=== PATIENT | male | born 1960 | race Caucasian/White ===

== ENCOUNTER 2020-07-05 14:30 | Inpatient (IN) | payer MEDICAID ==
[~2020-07-05] VITALS: Ht 162.6 cm; Wt 83.9 kg
[2020-07-05 20:17] LABS: BASOPHILS % (AUTO) 0.9 % (0.0-2.0); EOSINOPHILS % (AUTO) 0.5 % (1.0-6.0); HEMATOCRIT 32.6 % (41-53); HEMOGLOBIN 10.6 g/dL (13.5-17.5); LYMPHOCYTES % (AUTO) 16.6 % (22.0-44.0); MEAN CORPUSCULAR HGB CONC 32.4 G/dL (31.0-37.0); MEAN CORPUSCULAR VOLUME 77 fL (80-100); MONOCYTES # (AUTO) 0.7 K/uL (0.1-1.0); MONOCYTES % (AUTO) 12.5 % (2.0-9.0); NEUTROPHILS # (AUTO) 4.1 K/uL (1.8-7.7); NEUTROPHILS % (AUTO) 69.5 % (40.0-70.0); PLATELET COUNT (AUTO) 317 K/uL (150-450); RED BLOOD CELL COUNT(AUTO) 4.21 MIL/uL (4.50-5.90); RED CELL DISTRIBUTION WIDTH 21.7 % (11.5-14.5)
[2020-07-05 20:29] LABS: COVID AG,FIA SOURCE NASOPHARYNGEAL
[2020-07-05 20:29] LABS: ANION GAP 14 mmol/L (8-16); CARBON DIOXIDE 24 mmol/L (22-29); CHLORIDE 100 mmol/L (98-107); CREATININE 0.76 mg/dL (0.60-1.30); GLUCOSE,RANDOM 91 mg/dL (70-110); POTASSIUM 3.6 mmol/L (3.5-5.1); SODIUM SERUM 138 mmol/L (136-145); UREA NITROGEN, BLOOD 8 mg/dL (7-18)
[2020-07-05 20:30] LABS: CALCIUM, TOTAL 8.7 mg/dL (8.8-10.5); GLOMERULAR FILTR. RATE CALC > 60 mL/min (>60)
[2020-07-05 20:35] LABS: ALANINE AMINOTRANSFERASE 29 U/L (12-78); ALBUMIN 3.8 g/dL (3.4-5.0); ALKALINE PHOSPHATASE 66 U/L (46-116); ASPARTATE AMINOTRANSFERASE 35 U/L (15-37); BILIRUBIN,TOTAL 0.2 mg/dL (0.1-1.0)
[2020-07-05 20:45] LABS: APPEARANCE,URINE CLEAR (CLEAR); BILIRUBIN,URINE NEGATIVE (NEGATIVE); GLUCOSE, URINE (UA) NEGATIVE (NEGATIVE); KETONES,URINE NEGATIVE (NEGATIVE); LEUKOCYTE ESTERASE ,URINE NEGATIVE (NEGATIVE); NITRATE,URINE NEGATIVE (NEGATIVE); OCCULT BLOOD,URINE SMALL (NEGATIVE); PROTEIN,URINE POS 1+ (NEGATIVE)
[2020-07-05 20:52] LABS: AMPHET/METH SCREEN,URINE NEGATIVE (NEGATIVE); BARBITURATE SCREEN, URINE NEGATIVE (NEGATIVE); BENZODIAZEPINES SCREEN,URINE NEGATIVE (NEGATIVE); CANNABINOID SCREEN,URINE POSITIVE (NEGATIVE); COCAINE SCREEN,URINE NEGATIVE (NEGATIVE); METHADONE SCREEN, URINE NEGATIVE (NEGATIVE); OPIATE SCREEN,URINE NEGATIVE (NEGATIVE)
[2020-07-05 20:57] LABS: WBC,URINE 0-2 /HPF (0-5)
[2020-07-05 20:58] LABS: BACTERIA,URINE Many /HPF (None Seen)
[2020-07-05 21:01] LABS: SQUAMOUS EPITHELIAL CELL,UR Few /LPF (None Seen)
[2020-07-05 21:04] LABS: PHENCYCLIDINE SCREEN,URINE NEGATIVE (NEGATIVE)
[2020-07-05] MEDS ORDERED: LORazepam 1 MG TABLET PO ONE (21:15)
[2020-07-05] MEDS ORDERED: HALOPERIDOL 5 MG TABLET PO PRN (22:45)
[2020-07-05] MEDS ORDERED: LORazepam 2 MG TABLET PO PRN (22:45)
[2020-07-05] MEDS ORDERED: ZOLPIDEM TARTRATE 10 MG TABLET PO PRN (22:45)
[2020-07-06] VITALS (13 sets, daily range): BP systolic 113–163; BP diastolic 67–98
[2020-07-06 06:53] LABS: CHOL/HDL RATIO 2.2 (4.2-7.3)
[2020-07-06] MEDS ORDERED: ONDANSETRON HCL 4 MG TABLET PO PRN (07:15)
[2020-07-06] MEDS ORDERED: LOPERAMIDE HCL 2 MG CAPSULE PO PRN (07:15)
[2020-07-06] MEDS ORDERED: GuaiFENesin/D-METHORPHAN [SUGAR-FREE] 200-20MG/10 ML SYRUP UDCUP PO PRN (07:15)
[2020-07-06] MEDS ORDERED: DOCUSATE SODIUM 100 MG CAPSULE PO PRN (07:15)
[2020-07-06] MEDS ORDERED: PETROLATUM,WHITE 28 GM JELLY TP PRN (07:15)
[2020-07-06] MEDS ORDERED: ACETAMINOPHEN 325 MG TABLET PO PRN (07:15)
[2020-07-06] MEDS ORDERED: ALBUTEROL SULFATE HFA 90 MCG/PUFF 8 GM INHALER IH PRN (07:15)
[2020-07-06] MEDS ORDERED: MAGNESIUM HYDROXIDE SUSPENSION 30 ML UDCUP PO PRN (07:15)
[2020-07-06] MEDS ORDERED: IBUPROFEN 400 MG TABLET PO PRN (07:15)
[2020-07-06] MEDS ORDERED: NICOTINE 14 MG/24 HOUR PATCH TD PRN (07:15)
[2020-07-06] MEDS ORDERED: MAG HYDROX/AL HYDROX/SIMETH ES 30 ML SUSPENSION UDCUP PO PRN (07:15)
[2020-07-06] MEDS ORDERED: CloNIDine HCL 0.1 MG TABLET PO PRN (07:15)
[2020-07-06] MEDS ORDERED: CYANOCOBALAMIN 1,000 MCG/ML VIAL IM ONE (14:15)
[2020-07-06] MEDS: FOLIC ACID 1 MG TABLET PO SCH (14:57)
[2020-07-06] MEDS: MULTIVITAMINS WITH MINERALS, THERAPEUTIC TABLET PO SCH (14:57)
[2020-07-06] MEDS: SERTRALINE HCL 50 MG TABLET PO SCH (14:57)
[2020-07-06] MEDS: THIAMINE 100 MG TABLET PO SCH (16:39)
[2020-07-06] MEDS: DIAZEPAM 10 MG TABLET PO PRN (19:44)
[2020-07-06] MEDS: DIVALPROEX SODIUM 500 MG ER TABLET PO SCH (21:05)
[2020-07-07 02:00] VITALS: BP 137/94
[2020-07-07] MEDS: DIAZEPAM 10 MG TABLET PO PRN (03:52)
[2020-07-07 06:00] VITALS: BP 131/91
[2020-07-07] MEDS ORDERED: DIAZEPAM 10 MG TABLET PO PRN (07:00)
[2020-07-07] MEDS: DIAZEPAM 10 MG TABLET PO SCH ×4 (08:01→20:07)
[2020-07-07] MEDS: SERTRALINE HCL 50 MG TABLET PO SCH (08:01)
[2020-07-07] MEDS: FOLIC ACID 1 MG TABLET PO SCH (08:01)
[2020-07-07] MEDS: THIAMINE 100 MG TABLET PO SCH ×2 (08:01→16:02)
[2020-07-07] MEDS: MULTIVITAMINS WITH MINERALS, THERAPEUTIC TABLET PO SCH (08:01)
[2020-07-07 08:25] VITALS: BP 149/107
[2020-07-07 10:00] VITALS: BP 135/87
[2020-07-07 16:00] VITALS: BP 84/57
[2020-07-07 18:26] VITALS: BP 148/82
[2020-07-07] MEDS: DIVALPROEX SODIUM 500 MG ER TABLET PO SCH (20:08)
[2020-07-08 02:08] VITALS: BP 132/87
[2020-07-08 08:24] VITALS: BP 135/91
[2020-07-08 08:25] VITALS: BP 135/91
[2020-07-08] MEDS: DIAZEPAM 10 MG TABLET PO SCH ×4 (09:12→20:46)
[2020-07-08] MEDS: THIAMINE 100 MG TABLET PO SCH ×2 (09:12→16:31)
[2020-07-08] MEDS: SERTRALINE HCL 50 MG TABLET PO SCH (09:12)
[2020-07-08] MEDS: FOLIC ACID 1 MG TABLET PO SCH (09:12)
[2020-07-08] MEDS: MULTIVITAMINS WITH MINERALS, THERAPEUTIC TABLET PO SCH (09:12)
[2020-07-08 18:12] VITALS: BP 132/80
[2020-07-08 18:19] VITALS: BP 139/83
[2020-07-08] MEDS: DIVALPROEX SODIUM 500 MG ER TABLET PO SCH (20:46)
[2020-07-09] MEDS ORDERED: DIAZEPAM 5 MG TABLET PO PRN (07:00)
[2020-07-09] MEDS: MULTIVITAMINS WITH MINERALS, THERAPEUTIC TABLET PO SCH (08:08)
[2020-07-09] MEDS: DIAZEPAM 5 MG TABLET PO SCH ×4 (08:10→20:38)
[2020-07-09] MEDS: FOLIC ACID 1 MG TABLET PO SCH (08:10)
[2020-07-09] MEDS: THIAMINE 100 MG TABLET PO SCH ×2 (08:10→16:27)
[2020-07-09] MEDS: SERTRALINE HCL 50 MG TABLET PO SCH (08:10)
[2020-07-09 08:15] VITALS: BP 127/96
[2020-07-09 16:00] VITALS: BP 145/82
[2020-07-09] MEDS: DIVALPROEX SODIUM 500 MG ER TABLET PO SCH (20:38)
[2020-07-10] MEDS ORDERED: DIAZEPAM 5 MG TABLET PO PRN (07:00)
[2020-07-10] MEDS: FOLIC ACID 1 MG TABLET PO SCH (08:01)
[2020-07-10] MEDS: SERTRALINE HCL 50 MG TABLET PO SCH (08:01)
[2020-07-10] MEDS: MULTIVITAMINS WITH MINERALS, THERAPEUTIC TABLET PO SCH (08:01)
[2020-07-10] MEDS: THIAMINE 100 MG TABLET PO SCH ×2 (08:01→16:30)
[2020-07-10 08:50] VITALS: BP 146/89
[2020-07-10 08:53] VITALS: BP 146/89
[2020-07-10 16:00] VITALS: BP 140/76
[2020-07-10 19:28] VITALS: BP 140/76
[2020-07-10] MEDS: DIVALPROEX SODIUM 500 MG ER TABLET PO SCH (20:19)
[2020-07-11] MEDS: MULTIVITAMINS WITH MINERALS, THERAPEUTIC TABLET PO SCH (08:07)
[2020-07-11] MEDS: SERTRALINE HCL 50 MG TABLET PO SCH (08:07)
[2020-07-11] MEDS: FOLIC ACID 1 MG TABLET PO SCH (08:07)
[2020-07-11] MEDS: THIAMINE 100 MG TABLET PO SCH ×2 (08:07→16:09)
[2020-07-11 12:10] VITALS: BP 126/67
[2020-07-11 16:30] VITALS: BP 139/86
[2020-07-11 17:24] LABS: COVID AG,FIA SOURCE NASOPHARYNGEAL
[2020-07-11] MEDS: DIVALPROEX SODIUM 500 MG ER TABLET PO SCH (20:37)
[2020-07-12] MEDS: THIAMINE 100 MG TABLET PO SCH ×2 (08:27→17:05)
[2020-07-12] MEDS: SERTRALINE HCL 50 MG TABLET PO SCH (08:27)
[2020-07-12] MEDS: MULTIVITAMINS WITH MINERALS, THERAPEUTIC TABLET PO SCH (08:27)
[2020-07-12] MEDS: FOLIC ACID 1 MG TABLET PO SCH (08:27)
[2020-07-12 08:53] VITALS: BP 135/81
[2020-07-12 16:00] VITALS: BP 116/77
[2020-07-12 16:21] VITALS: BP 116/77
[2020-07-12] MEDS: DIVALPROEX SODIUM 500 MG ER TABLET PO SCH (20:10)
[2020-07-13] MEDS: FOLIC ACID 1 MG TABLET PO SCH (08:39)
[2020-07-13] MEDS: THIAMINE 100 MG TABLET PO SCH ×2 (08:39→16:16)
[2020-07-13] MEDS: SERTRALINE HCL 50 MG TABLET PO SCH (08:39)
[2020-07-13] MEDS: MULTIVITAMINS WITH MINERALS, THERAPEUTIC TABLET PO SCH (08:39)
[2020-07-13 09:00] VITALS: BP 136/78
[2020-07-13 16:00] VITALS: BP 141/78
[2020-07-13] MEDS: DIVALPROEX SODIUM 500 MG ER TABLET PO SCH (20:19)
[2020-07-14] MEDS: FOLIC ACID 1 MG TABLET PO SCH (08:26)
[2020-07-14] MEDS: SERTRALINE HCL 50 MG TABLET PO SCH (08:26)
[2020-07-14] MEDS: THIAMINE 100 MG TABLET PO SCH ×2 (08:26→16:57)
[2020-07-14] MEDS: MULTIVITAMINS WITH MINERALS, THERAPEUTIC TABLET PO SCH (08:26)
[2020-07-14 08:35] VITALS: BP 147/81
[2020-07-14 17:00] VITALS: BP 130/80
[2020-07-14] MEDS: DIVALPROEX SODIUM 500 MG ER TABLET PO SCH (20:03)
[2020-07-15 08:12] VITALS: BP 136/84
[2020-07-15] MEDS: MULTIVITAMINS WITH MINERALS, THERAPEUTIC TABLET PO SCH (08:30)
[2020-07-15] MEDS: THIAMINE 100 MG TABLET PO SCH ×2 (08:30→16:09)
[2020-07-15] MEDS: FOLIC ACID 1 MG TABLET PO SCH (08:30)
[2020-07-15] MEDS: SERTRALINE HCL 50 MG TABLET PO SCH (08:30)
[2020-07-15 16:00] VITALS: BP 127/69
[2020-07-15] MEDS: DIVALPROEX SODIUM 500 MG ER TABLET PO SCH (20:05)
[2020-07-16 08:25] VITALS: BP 133/85
[2020-07-16] MEDS: MULTIVITAMINS WITH MINERALS, THERAPEUTIC TABLET PO SCH (08:32)
[2020-07-16] MEDS: THIAMINE 100 MG TABLET PO SCH (08:32)
[2020-07-16] MEDS: SERTRALINE HCL 50 MG TABLET PO SCH (08:32)
[2020-07-16] MEDS ORDERED: DIVA-80 PO (09:09)
[2020-07-16] MEDS ORDERED: SERT-158 PO (09:10)
[2020-07-16] MEDS ORDERED: THIA100T80 PO (09:11)
== END 2020-07-16 10:24 | disposition home or self-care (01) | DRG 750 ==
LOC: EMS 14:30 → 3EI 22:42
DX: F25.0 Schizoaffective disorder, bipolar type (principal); E78.5 Hyperlipidemia, unspecified; F10.10 Alcohol abuse, uncomplicated; F12.90 Cannabis use, unspecified, uncomplicated; D64.9 Anemia, unspecified; F43.10 Post-traumatic stress disorder, unspecified; R45.851 Suicidal ideations; Y90.6 Blood alcohol level of 120-199 mg/100 ml; Z20.822 Contact with and (suspected) exposure to COVID-19; Z91.5 Personal history of self-harm; Z59.0 Homelessness
CPT/HCPCS: 87086; 87426; 99285; G0480; J3420

== ENCOUNTER 2020-10-12 03:16 | Emergency (ER) | payer MEDICAID, OTHER ==
[~2020-10-12] VITALS: Ht 162.6 cm; Wt 84.5 kg
[~2020-10-12 03:16] MED LIST: DIVA-80 PO; SERT-158 PO; THIA100T80 PO
[2020-10-12 03:55] VITALS: BP 148/85
[2020-10-12 04:12] LABS: HEMOGLOBIN 11.9 g/dL (13.5-17.5); MEAN CORPUSCULAR HEMOGLOBIN 25.5 pg (26.0-34.0); MEAN CORPUSCULAR HGB CONC 32.1 G/dL (31.0-37.0); MEAN CORPUSCULAR VOLUME 80 fL (80-100); PLATELET COUNT (AUTO) 412 K/uL (150-450); RED BLOOD CELL COUNT(AUTO) 4.65 MIL/uL (4.50-5.90); RED CELL DISTRIBUTION WIDTH 18.6 % (11.5-14.5)
[2020-10-12 04:14] LABS: ANION GAP 8 mmol/L (8-16); CALCIUM, TOTAL 8.9 mg/dL (8.8-10.5); CARBON DIOXIDE 29 mmol/L (22-29); CHLORIDE 100 mmol/L (98-107); CREATININE 0.94 mg/dL (0.60-1.30); GLOMERULAR FILTR. RATE CALC > 60 mL/min (>60); GLUCOSE,RANDOM 88 mg/dL (70-110); POTASSIUM 3.5 mmol/L (3.5-5.1); SODIUM SERUM 137 mmol/L (136-145); UREA NITROGEN, BLOOD 11 mg/dL (7-18)
[2020-10-12 04:20] LABS: ALANINE AMINOTRANSFERASE 16 U/L (12-78); ALBUMIN 4.2 g/dL (3.4-5.0); ALKALINE PHOSPHATASE 63 U/L (46-116); ASPARTATE AMINOTRANSFERASE 17 U/L (15-37); BILIRUBIN,TOTAL 0.3 mg/dL (0.1-1.0); TOTAL PROTEIN, SERUM 8.4 g/dL (6.4-8.2)
[2020-10-12 04:57] LABS: BAND NEUTROPHILS % (MANUAL) 0 % (0-5)
[2020-10-12 04:58] LABS: EOSINOPHILS % (MANUAL) 4 % (1-6); LYMPHOCYTES % (MANUAL) 28 % (22-44); MONOCYTES % (MANUAL) 18 % (2-9); SEGMENTED NEUTROPHILS % 50 % (40-70)
== END 2020-10-12 05:53 | disposition home or self-care (01) ==
LOC: EMS 03:23
DX: F32.9 Major depressive disorder, single episode, unspecified (principal); F10.129 Alcohol abuse with intoxication, unspecified; Y90.2 Blood alcohol level of 40-59 mg/100 ml
CPT/HCPCS: 36415; 80053; 85025; 99283; G0480

== ENCOUNTER 2020-10-19 04:15 | Emergency (ER) | payer OTHER ==
[~2020-10-19] VITALS: Ht 162.6 cm; Wt 85.9 kg
[2020-10-19 05:08] LABS: BASOPHILS % (AUTO) 1.3 % (0.0-2.0); EOSINOPHILS % (AUTO) 1.9 % (1.0-6.0); HEMATOCRIT 34.2 % (41-53); HEMOGLOBIN 11.2 g/dL (13.5-17.5); LYMPHOCYTES # (AUTO) 2.6 K/uL (1.0-4.8); LYMPHOCYTES % (AUTO) 30.7 % (22.0-44.0); MEAN CORPUSCULAR HEMOGLOBIN 25.8 pg (26.0-34.0); MEAN CORPUSCULAR HGB CONC 32.6 G/dL (31.0-37.0); MEAN CORPUSCULAR VOLUME 79 fL (80-100); MONOCYTES # (AUTO) 1.4 K/uL (0.1-1.0); MONOCYTES % (AUTO) 16.7 % (2.0-9.0); NEUTROPHILS # (AUTO) 4.2 K/uL (1.8-7.7); NEUTROPHILS % (AUTO) 49.4 % (40.0-70.0); PLATELET COUNT (AUTO) 353 K/uL (150-450); RED BLOOD CELL COUNT(AUTO) 4.32 MIL/uL (4.50-5.90); RED CELL DISTRIBUTION WIDTH 18.6 % (11.5-14.5)
[2020-10-19 05:19] LABS: ANION GAP 12 mmol/L (8-16); CALCIUM, TOTAL 8.5 mg/dL (8.8-10.5); CARBON DIOXIDE 28 mmol/L (22-29); CHLORIDE 103 mmol/L (98-107); CREATININE 0.82 mg/dL (0.60-1.30); GLOMERULAR FILTR. RATE CALC > 60 mL/min (>60); GLUCOSE,RANDOM 109 mg/dL (70-110); POTASSIUM 3.7 mmol/L (3.5-5.1); SODIUM SERUM 143 mmol/L (136-145); UREA NITROGEN, BLOOD 9 mg/dL (7-18)
[2020-10-19 05:25] LABS: ALANINE AMINOTRANSFERASE 29 U/L (12-78); ALBUMIN 3.6 g/dL (3.4-5.0); ALKALINE PHOSPHATASE 86 U/L (46-116); ASPARTATE AMINOTRANSFERASE 39 U/L (15-37); BILIRUBIN,TOTAL 0.2 mg/dL (0.1-1.0)
[2020-10-19 09:00] VITALS: BP 129/82
== END 2020-10-19 09:47 | disposition home or self-care (01) ==
LOC: EMS 04:21
DX: R45.851 Suicidal ideations (principal); F10.10 Alcohol abuse, uncomplicated; F31.9 Bipolar disorder, unspecified; F20.9 Schizophrenia, unspecified; F12.90 Cannabis use, unspecified, uncomplicated; Y90.8 Blood alcohol level of 240 mg/100 ml or more
CPT/HCPCS: 36415; 80053; 85025; 99285; G0480

== ENCOUNTER 2020-11-07 12:39 | Inpatient (IN) | payer MEDICAID, OTHER ==
[~2020-11-07] VITALS: Ht 162.6 cm; Wt 81.0 kg
[2020-11-07] MEDS ORDERED: ChlordiazePOXIDE HCL 25 MG CAPSULE PO ONE (14:45)
[2020-11-07 14:55] LABS: BASOPHILS % (AUTO) 0.9 % (0.0-2.0); EOSINOPHILS % (AUTO) 1.6 % (1.0-6.0); HEMATOCRIT 34.5 % (41-53); LYMPHOCYTES % (AUTO) 25.8 % (22.0-44.0); MEAN CORPUSCULAR HEMOGLOBIN 26.2 pg (26.0-34.0); MEAN CORPUSCULAR HGB CONC 31.8 G/dL (31.0-37.0); MEAN CORPUSCULAR VOLUME 83 fL (80-100); MONOCYTES # (AUTO) 1.3 K/uL (0.1-1.0); MONOCYTES % (AUTO) 16.9 % (2.0-9.0); NEUTROPHILS # (AUTO) 4.2 K/uL (1.8-7.7); NEUTROPHILS % (AUTO) 54.8 % (40.0-70.0); PLATELET COUNT (AUTO) 287 K/uL (150-450); RED BLOOD CELL COUNT(AUTO) 4.18 MIL/uL (4.50-5.90); RED CELL DISTRIBUTION WIDTH 18.7 % (11.5-14.5)
[2020-11-07 14:57] LABS: APPEARANCE,URINE CLEAR (CLEAR); BILIRUBIN,URINE NEGATIVE (NEGATIVE); GLUCOSE, URINE (UA) NEGATIVE (NEGATIVE); KETONES,URINE NEGATIVE (NEGATIVE); LEUKOCYTE ESTERASE ,URINE NEGATIVE (NEGATIVE); NITRATE,URINE NEGATIVE (NEGATIVE); OCCULT BLOOD,URINE NEGATIVE (NEGATIVE); PROTEIN,URINE NEGATIVE (NEGATIVE)
[2020-11-07 15:04] LABS: AMPHET/METH SCREEN,URINE NEGATIVE (NEGATIVE); BARBITURATE SCREEN, URINE NEGATIVE (NEGATIVE); BENZODIAZEPINES SCREEN,URINE POSITIVE (NEGATIVE); CANNABINOID SCREEN,URINE NEGATIVE (NEGATIVE); COCAINE SCREEN,URINE NEGATIVE (NEGATIVE); METHADONE SCREEN, URINE NEGATIVE (NEGATIVE); OPIATE SCREEN,URINE NEGATIVE (NEGATIVE)
[2020-11-07 15:05] LABS: PHENCYCLIDINE SCREEN,URINE NEGATIVE (NEGATIVE)
[2020-11-07 15:07] LABS: ANION GAP 6 mmol/L (8-16); CALCIUM, TOTAL 8.9 mg/dL (8.8-10.5); CARBON DIOXIDE 33 mmol/L (22-29); CHLORIDE 102 mmol/L (98-107); CREATININE 0.76 mg/dL (0.60-1.30); GLOMERULAR FILTR. RATE CALC > 60 mL/min (>60); GLUCOSE,RANDOM 100 mg/dL (70-110); POTASSIUM 4.6 mmol/L (3.5-5.1); SODIUM SERUM 141 mmol/L (136-145); UREA NITROGEN, BLOOD 8 mg/dL (7-18)
[2020-11-07 15:08] LABS: BACTERIA,URINE None Seen /HPF (None Seen); RBC,URINE None Seen /HPF (0-2); WBC,URINE None Seen /HPF (0-5)
[2020-11-07 15:13] LABS: ALANINE AMINOTRANSFERASE 59 U/L (12-78); ALBUMIN 3.6 g/dL (3.4-5.0); ALKALINE PHOSPHATASE 72 U/L (46-116); ASPARTATE AMINOTRANSFERASE 50 U/L (15-37); BILIRUBIN,TOTAL 0.4 mg/dL (0.1-1.0); TOTAL PROTEIN, SERUM 8.2 g/dL (6.4-8.2)
[2020-11-07 15:14] LABS: ACETAMINOPHEN < 2 mcg/mL (10-30)
[2020-11-07 15:48] LABS: SALICYLATE < 2.8 mg/dL (2.8-20.0)
[2020-11-07 18:50] LABS: COVID AG,FIA SOURCE NASOPHARYNGEAL
[2020-11-07] MEDS ORDERED: LORazepam 2 MG TABLET PO PRN (19:30)
[2020-11-07] MEDS ORDERED: HALOPERIDOL 5 MG TABLET PO PRN (19:30)
[2020-11-07] MEDS ORDERED: ZOLPIDEM TARTRATE 10 MG TABLET PO PRN (19:30)
[2020-11-07 22:03] VITALS: BP 157/90
[2020-11-07 22:09] VITALS: BP 157/90
[2020-11-07] MEDS ORDERED: PNEUMOCOCCAL VACCINE POLYVALENT 0.5 ML VIAL [PPSV23] IM. ONE (23:30)
[2020-11-07 23:33] VITALS: BP 134/88
[2020-11-08] VITALS (10 sets, daily range): BP systolic 16–148; BP diastolic 55–88
[2020-11-08] MEDS ORDERED: ACETAMINOPHEN 325 MG TABLET PO PRN (07:45)
[2020-11-08] MEDS ORDERED: DOCUSATE SODIUM 100 MG CAPSULE PO PRN (07:45)
[2020-11-08] MEDS ORDERED: ONDANSETRON HCL 4 MG TABLET PO PRN (07:45)
[2020-11-08] MEDS ORDERED: CloNIDine HCL 0.1 MG TABLET PO PRN (07:45)
[2020-11-08] MEDS ORDERED: NICOTINE 14 MG/24 HOUR PATCH TD PRN (07:45)
[2020-11-08] MEDS ORDERED: ALBUTEROL SULFATE HFA 90 MCG/PUFF 8 GM INHALER IH PRN (07:45)
[2020-11-08] MEDS ORDERED: IBUPROFEN 400 MG TABLET PO PRN (07:45)
[2020-11-08] MEDS ORDERED: GuaiFENesin/D-METHORPHAN [SUGAR-FREE] 200-20MG/10 ML SYRUP UDCUP PO PRN (07:45)
[2020-11-08] MEDS ORDERED: LOPERAMIDE HCL 2 MG CAPSULE PO PRN (07:45)
[2020-11-08] MEDS ORDERED: PETROLATUM,WHITE 28 GM JELLY TP PRN (07:45)
[2020-11-08] MEDS ORDERED: MAGNESIUM HYDROXIDE SUSPENSION 30 ML UDCUP PO PRN (07:45)
[2020-11-08] MEDS ORDERED: MAG HYDROX/AL HYDROX/SIMETH ES 30 ML SUSPENSION UDCUP PO PRN (07:45)
[2020-11-08] MEDS: SERTRALINE HCL 50 MG TABLET PO SCH (12:47)
[2020-11-08] MEDS: DIVALPROEX SODIUM 500 MG DR TABLET PO SCH (20:40)
[2020-11-09 04:27] VITALS: BP 137/84
[2020-11-09 08:34] VITALS: BP 125/67
[2020-11-09] MEDS: SERTRALINE HCL 50 MG TABLET PO SCH (09:09)
[2020-11-09 16:39] VITALS: BP 130/77
[2020-11-09 19:45] VITALS: BP 130/77
[2020-11-09] MEDS: DIVALPROEX SODIUM 500 MG DR TABLET PO SCH (20:34)
[2020-11-09] MEDS: OLANZapine 5 MG TABLET PO SCH (20:38)
[2020-11-10 00:37] VITALS: BP 113/85
[2020-11-10 00:40] VITALS: BP 113/85
[2020-11-10 08:15] VITALS: BP 126/64
[2020-11-10] MEDS: SERTRALINE HCL 50 MG TABLET PO SCH (08:49)
[2020-11-10] MEDS: OLANZapine 5 MG TABLET PO SCH ×2 (08:49→17:17)
[2020-11-10 16:21] VITALS: BP 109/57
[2020-11-10 19:16] VITALS: BP 109/57
[2020-11-10] MEDS: DIVALPROEX SODIUM 500 MG DR TABLET PO SCH (20:22)
[2020-11-11 00:29] VITALS: BP 101/58
[2020-11-11 00:30] VITALS: BP 101/58
[2020-11-11 08:59] VITALS: BP 122/74
[2020-11-11] MEDS: SERTRALINE HCL 50 MG TABLET PO SCH (09:16)
[2020-11-11 16:49] VITALS: BP 140/77
[2020-11-11] MEDS: OLANZapine 5 MG TABLET PO SCH (16:52)
[2020-11-11 18:55] VITALS: BP 140/77
[2020-11-11] MEDS: DIVALPROEX SODIUM 500 MG DR TABLET PO SCH (19:41)
[2020-11-12 02:13] VITALS: BP 99/60
[2020-11-12 02:14] VITALS: BP 99/60
[2020-11-12 07:27] LABS: COVID AG,FIA SOURCE NASOPHARYNGEAL
[2020-11-12 08:27] VITALS: BP 109/64
[2020-11-12 09:00] VITALS: BP 110/70
[2020-11-12] MEDS: OLANZapine 5 MG TABLET PO SCH ×2 (09:00→17:01)
[2020-11-12] MEDS: SERTRALINE HCL 50 MG TABLET PO SCH (09:00)
[2020-11-12 16:48] VITALS: BP 100/55
[2020-11-12 18:15] VITALS: BP 100/65
[2020-11-12] MEDS: DIVALPROEX SODIUM 500 MG DR TABLET PO SCH (20:33)
[2020-11-13 05:07] VITALS: BP 108/65
[2020-11-13] MEDS: OLANZapine 5 MG TABLET PO SCH ×2 (08:49→17:49)
[2020-11-13] MEDS: SERTRALINE HCL 100 MG TABLET PO SCH (08:49)
[2020-11-13 09:00] VITALS: BP 116/70
[2020-11-13 16:00] VITALS: BP 136/79
[2020-11-13 16:14] VITALS: BP 136/79
[2020-11-13] MEDS: DIVALPROEX SODIUM 500 MG DR TABLET PO SCH (20:29)
[2020-11-14 01:23] VITALS: BP 109/64
[2020-11-14 06:35] VITALS: BP 109/64
[2020-11-14] MEDS: OLANZapine 5 MG TABLET PO SCH ×2 (08:28→17:09)
[2020-11-14] MEDS: SERTRALINE HCL 100 MG TABLET PO SCH (08:28)
[2020-11-14] MEDS: MULTIVITAMINS WITH MINERALS, THERAPEUTIC TABLET PO SCH (08:28)
[2020-11-14 08:38] VITALS: BP 131/76
[2020-11-14 16:00] VITALS: BP 119/79
[2020-11-14 16:36] VITALS: BP 119/79
[2020-11-14] MEDS: DIVALPROEX SODIUM 500 MG DR TABLET PO SCH (20:20)
[2020-11-15 01:56] VITALS: BP 111/63
[2020-11-15 09:00] VITALS: BP 112/66
[2020-11-15] MEDS: OLANZapine 5 MG TABLET PO SCH ×2 (09:20→16:46)
[2020-11-15] MEDS: MULTIVITAMINS WITH MINERALS, THERAPEUTIC TABLET PO SCH (09:20)
[2020-11-15] MEDS: SERTRALINE HCL 100 MG TABLET PO SCH (09:20)
[2020-11-15 17:08] VITALS: BP 129/76
[2020-11-15] MEDS: DIVALPROEX SODIUM 500 MG DR TABLET PO SCH (19:10)
[2020-11-16 05:27] VITALS: BP 108/61
[2020-11-16 08:27] VITALS: BP 116/69
[2020-11-16] MEDS: MULTIVITAMINS WITH MINERALS, THERAPEUTIC TABLET PO SCH (08:52)
[2020-11-16] MEDS: OLANZapine 5 MG TABLET PO SCH ×2 (08:52→16:08)
[2020-11-16] MEDS: SERTRALINE HCL 100 MG TABLET PO SCH (08:52)
[2020-11-16 16:22] VITALS: BP 124/71
[2020-11-16] MEDS: DIVALPROEX SODIUM 500 MG DR TABLET PO SCH (20:01)
[2020-11-17] VITALS: BP 127/80
[2020-11-17 08:20] VITALS: BP 117/77
[2020-11-17] MEDS: MULTIVITAMINS WITH MINERALS, THERAPEUTIC TABLET PO SCH (09:35)
[2020-11-17] MEDS: OLANZapine 5 MG TABLET PO SCH ×2 (09:35→16:29)
[2020-11-17] MEDS: SERTRALINE HCL 100 MG TABLET PO SCH (09:35)
[2020-11-17 16:33] VITALS: BP 126/84
[2020-11-17] MEDS: DIVALPROEX SODIUM 500 MG DR TABLET PO SCH (20:40)
[2020-11-18] VITALS: BP 129/71
[2020-11-18 08:34] VITALS: BP 137/76
[2020-11-18] MEDS ORDERED: SERT-162 PO (08:47)
[2020-11-18] MEDS ORDERED: OLAN10TA74 PO (08:47)
[2020-11-18] MEDS: SERTRALINE HCL 100 MG TABLET PO SCH (08:51)
[2020-11-18] MEDS: OLANZapine 5 MG TABLET PO SCH (08:51)
[2020-11-18] MEDS: MULTIVITAMINS WITH MINERALS, THERAPEUTIC TABLET PO SCH (08:52)
[2020-11-18 09:52] LABS: GLUCOMETER DEV NAME(LOC) POC.BV
== END 2020-11-18 14:49 | disposition home or self-care (01) | DRG 750 ==
LOC: EMS 12:43 → B2S 20:19
PROVIDERS: ADMIT Psychiatry & Neurology Child & Adolescent Psychiatry; ATTEND Psychiatry & Neurology Child & Adolescent Psychiatry
DX: F25.9 Schizoaffective disorder, unspecified (principal); R45.851 Suicidal ideations; E87.1 Hypo-osmolality and hyponatremia; R74.01 Elevation of levels of liver transaminase levels; D64.9 Anemia, unspecified; F12.90 Cannabis use, unspecified, uncomplicated; D72.829 Elevated white blood cell count, unspecified; F41.9 Anxiety disorder, unspecified; Z20.822 Contact with and (suspected) exposure to COVID-19; Z59.0 Homelessness
CPT/HCPCS: 80053; 81001; 85025; 90732; 99285; G0480; G0481